=== PATIENT | female | born 1990 | race Caucasian/White ===

== ENCOUNTER 2021-08-23 12:01 | Outpatient (REF) | payer MEDICAID, SELFPAY ==
[2021-08-23 14:02] LABS: COVID-19 Test Negative (Negative)
== END 2021-08-23 12:02 | disposition home or self-care (01) ==
LOC: HO.LAB 12:01
PROVIDERS: PCP Internal Medicine; Visit Provider Internal Medicine
DX: Z20.822 Contact with and (suspected) exposure to COVID-19 (principal)
CPT/HCPCS: 36415; 87635; C9803

== ENCOUNTER 2023-07-23 17:33 | Emergency (ER) | payer OTHER, SELFPAY ==
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
[2023-07-23 17:41] VITALS: BP 147/85; PULSE 113; O2SAT 97
[2023-07-23 18:00] VITALS: BP 170/95; PULSE 101; RESP 18; TEMP 37.3; O2SAT 97; BMI 39.0
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
[2023-07-23 20:04] LABS: MANUAL DIFF FLAG NO
[2023-07-23 20:07] LABS: Basophils Percent Auto 0.2 % (0-2); Eosinophils Percent Auto 0.1 % (0-4); Hematocrit 44.7 % (37.0-47.0); Hemoglobin 15.1 g/dl (12.0-16.0); Imm Gran Abs Auto 0.08 X10*3/uL (0.00-0.03); Imm Gran Pct Auto 0.4 % (0.0-0.4); Lymphocytes Absolute Auto 3.9 X10*3/uL (1.2-4.9); Lymphocytes Percent Auto 21.6 % (20-40); Mean Corpuscular HGB Conc 33.8 g/dl (31.0-35.0); Mean Corpuscular Hemoglobin 31.2 pg (27.0-33.0); Mean Corpuscular Volume 92.4 fL (80.0-98.0); Mean Platelet Volume 9.9 fL (9.4-12.3); Monocytes Absolute Auto 1.4 X10*3/uL (0.1-1.2); Monocytes Percent Auto 7.7 % (2-11); Neutrophils Absolute Auto 12.7 x10*3/uL (2.0-8.3); Platelet Count 324 X10*3/uL (160-400); Red Blood Count 4.84 X10*6/uL (4.20-5.50); Red Cell Distribution Width 12.6 % (11.0-16.0); White Blood Count 18.1 X10*3/uL (4.8-10.8)
[2023-07-23 20:20] LABS: Alanine Aminotransferase 25 U/L (0-31); Albumin Level 4.6 g/dL (3.5-5.0); Alkaline Phosphatase 42 U/L (39-117); Anion Gap 14 (12-20); Aspartate Amino Transferase 18 U/L (5-31); Bilirubin Direct 0.1 mg/dL (0.0-0.5); Bilirubin Total 0.3 mg/dL (0.0-1.0); Blood Urea Nitrogen 14 mg/dL (9-16); Calcium 9.3 mg/dL (8.4-10.2); Carbon Dioxide 25 mmol/L (22-29); Chloride 107 mmol/L (96-108); Estimated Glomerular Filt Rate > 60; Glucose Random 107 mg/dL (60-115); Lipase 24 U/L (8-78); Magnesium 2.2 mg/dL (1.6-2.6); Potassium 3.8 mmol/L (3.3-5.1); Sodium 142 mmol/L (135-145); Total Protein 7.5 g/dL (6.5-8.0)
[2023-07-23 20:30] VITALS: BP 171/84; PULSE 80; RESP 18; TEMP 36.6; O2SAT 98
--- NOTE | 2023-07-23 20:34 | MHC.EDTECH ---
Patient was brought in from the waiting room,patient was changed into hospital attire, vitals were taken and are elevated at 173/89,RN Elisabet made aware. Patient used the commode and urinated 500cc and a Urine sample was collected and sent to lab. Call meredith within reach
--- NOTE | 2023-07-23 20:55 | PC.NURSE ---
20G IV placed right AC, CT scan pending negative urine.
[2023-07-23 20:57] LABS: Appearance Urine Clear; Color Urine Yellow; Glucose Urine UA Negative (Negative); Leukocyte Esterase Urine Trace (Negative); Nitrite Urine Negative (Negative); Specific Gravity - Urine 1.025 (1.005-1.025); UMIC TRIGGER UACC YES; Urine Blood Negative (Negative); Urine Ketones Trace mg/dL (Negative); Urine Protein Trace mg/dL (Neg-Trace)
[2023-07-23 21:11] LABS: Bacteria Urine 1+ (None Seen); Hyaline Casts Urine 0-2 /LPF (0-2); UACC Culture Trigger YES
[2023-07-23 21:40] VITALS: BP 154/73; PULSE 84; RESP 18; TEMP 36.9; O2SAT 98
--- NOTE | 2023-07-23 21:41 | MHC.EDTECH ---
Hourly rounds completed and vitals were taken, patient is resting comfortably and call meredith within reach
[2023-07-23 21:44] LABS: UPreg QC Valid YES; Urine Pregnancy NEGATIVE (NEGATIVE)
[2023-07-23] MEDS: iohexoL 350 MG/ML 100 ML INFUS..BTL IV (22:20)
[2023-07-23] MEDS: Morphine Sulfate 4 MG/ML CARTRIDGE IVPUSH (23:31)
[2023-07-23] MEDS: ondansetron HCL 4 MG/2 ML VIAL IVPUSH (23:32)
[2023-07-23] MEDS: 0.9 % Sodium Chloride 1,000 ML 999 ML IV (23:32)
[2023-07-23 23:50] VITALS: BP 155/78; PULSE 92; RESP 18; TEMP 37.1; O2SAT 98
--- NOTE | 2023-07-23 23:51 | MHC.EDTECH ---
Hourly rounds completed and vitals were taken,patient is resting comfortably at this time.
--- NOTE | 2023-07-24 00:22 | MHC.EDTECH ---
Patient giving two cans of lucien patrica and weston crackers per request.
[2023-07-24] MEDS: cefTRIAXone sodium 1 GM in 0.9 % Sodium Chloride 50 ML IV (00:56)
== END 2023-07-24 02:46 | disposition home or self-care (01) ==
PROVIDERS: Physician Assistant; Emergency Provider Internal Medicine
DX: Z04.1 Encounter for examination and observation following transport accident (principal); R10.10 Upper abdominal pain, unspecified; N39.0 Urinary tract infection, site not specified
CPT/HCPCS: 36415; 74177; 80048; 80076; 81001; 81025; 83690; 83735; 85025; 87086; 96361; 96365; 96375; 99284; J0696; J2270; J2405; Q9967